=== PATIENT | male | born 1985 ===

== ENCOUNTER → 2022-07-25 | Outpatient (CLI) | payer MEDICAID ==
[~2022-07-25] MED LIST: IOHEXOL 350 MG/ML 100ML IJ ONE
[2022-07-25 09:47] VITALS: BP 131/61
[2022-07-25 10:02] VITALS: BP 118/62
== END | disposition home or self-care (01) ==
LOC: Rad HDHVI 09:10
PROVIDERS: ATTEND Internal Medicine Cardiovascular Disease
DX: R07.89 Other chest pain (principal)
CPT/HCPCS: 71260; 93306; G0463; Q9967